=== PATIENT | female | born 1955 | race Caucasian/White ===

== ENCOUNTER 2018-07-09 06:54 | Day surgery (SDC) | payer MEDICARE, OTHER ==
[2018-07-08 12:24] VITALS: BMI 19.3
[2018-07-09 08:12] VITALS: BP 118/62; TEMP 98.6
--- NOTE | 2018-07-09 10:32 | RAD ---
CERVICAL AND LUMBAR MYELOGRAM: Indication: Cervical and lumbar pain and radiculopathy. Post-operative cervical and lumbar spine. FINDINGS: Web Engineer films show prior anterior fusion procedure in the cervical spine. Anterior plate and screws are present transfixing C4, C5, C6, and C7. Interbody implants and partial fusion at these levels. Poste rior alignment is preserved. Images of the lumbar spine reveal pedicle screws in place at L3 and L4. Interbody implant at L4-5 tawnya ear. Degenerative osteophytes and facet hypertrophy. Posterior alignment is preserved. Under local anesthesia, a 23 gauge spinal needle was used to enter the subarachnoid space within the spinal canal at the L2 level using a paramidline approach from the left under fluoroscopic guidance. Clear CSF was recovered. Isovue M300 was injected under fluoroscopic observation. Contrast opacified at the lumbar canal. Patient was placed head down on the fluoro table and contrast flowed into the ce rvical canal and this was documented under fluoro. Patient was returned to neutral position. Needle was removed. Sterile dressing applied. Patient was sent to CT following procedure. See post myelogram CT cervical spine and lumbar spine for further characterization. PROCEDURE NOTE: The procedure was discussed with patient. Patient was placed prone on the fluoro table. Lower back wa s prepped and draped in sterile manner. Local anesthesia was administered with Lidocaine under fluoro scopic guidance. 22 gauge spinal needle was used to enter the spinal canal using a paramidline approa ch on the left at L2. Clear CSF was recovered. Isovue M300 was injected under fluoroscopic observatio n as detailed above. There were no problems or complications. POS: [facility]
--- NOTE | 2018-07-09 11:40 | CT ---
POST MYELOGRAM CT CERVICAL SPINE: Date: 07/09/18 Multiple axial tomograms obtained through the cervical spine with multiplanar reconstruction followin g a cervical myelogram procedure. INDICATION; Cervical radiculopathy. Postoperative cervical spine. FINDINGS: Contrast throughout the subarachnoid space consistent with the post myelogram status. Postop changes from anterior fusion procedure noted. Anterior plate and screws transfix C4, C5, C6, and C7. Interbod y fusion at these levels. Degenerative changes are noted. Loss of disc space at C3-4 and at C7-T1. Mild anterolisthesis at C7-T 1 measured at approximately 3.0 mm. At C2-3, mild disc bulge and spondylosis mildly flatten the anterior thecal sac. Anterior subarachnoi d space is preserved. At C3-4, broad based disc bulge and spondylitic change flatten the thecal sac and abut the anterior c ord. These changes are slightly more pronounced centrally and paracentrally to the right, and there i s right facet and uncinate hypertrophy resulting in mild right foraminal stenosis. No significant spondylosis at C4-5 or C5-6. No foraminal stenosis at these levels. At C6-7, there is prominent uncinate hypertrophy on the right resulting in right foraminal stenosis. At C7-T1, there is mild anterolisthesis with minimal disc bulge. The anterior subarachnoid space is p reserved. No cord impingement. No central canal or foraminal stenosis. IMPRESSION: 1. Postop fusion changes from C4 through C7 as described. 2. Disc bulge and spondylosis at C3-4 abut the anterior cord and results in mild right foraminal jackelin nosis. 3. Uncinate hypertrophy results in right foraminal stenosis at C6-7. 4. Slight anterolisthesis at C7-T1 as described. POS: [facility]
--- NOTE | 2018-07-09 12:24 | CT ---
POST MYELOGRAM CT LUMBAR SPINE: INDICATIONS: History of prior lumbar surgery. Lumbar radiculopathy and low back pain. TECHNIQUE: Multiple axial tomograms obtained through the lumbar spine following myelogram procedure. Multiplana r reconstruction was performed. FINDINGS: There are bilateral pedicle screws at the L3 and L4 levels. Interbody implant and partial fusion at L4-L5. Vertebral body height and alignment is preserved. Mild degenerative disk changes at L3-L4 wi th mild vacuum phenomena and loss of disk space. At L1-L2, mild disk bulge flattens the thecal sac. No central canal or foraminal stenosis. At L2-L3, broad-based disk bulge flattens the anterior thecal sac. There is prominent posterior liga mentous hypertrophy. These changes compress the thecal sac, resulting in moderate central canal sten osis. At L3, there are bilateral pedicles screws, which appear adequately positioned. At the L3-L4 disk space, mild disk bulge abuts the thecal sac. Facet hypertrophy is present. No sig nificant central canal or foraminal stenosis. Posterior laminectomy change at L3-L4 and at L4-L5. Pedicle screws at L4 appear adequately positioned. At the L4-L5 disk space, interbody implant and partial fusion. Facet hypertrophy is prominent. No c entral canal stenosis. Mild foraminal encroachment bilaterally due to facet hypertrophy, without sig nificant foraminal stenosis. At L5-S1, mild diffuse disk bulge abuts the anterior thecal sac. This diffuse disk bulge contacts diana th traversing S1 nerve roots. Facet and ligamentous hypertrophy. Mild central canal stenosis. Mild bilateral foraminal narrowing secondary to facet hypertrophy. IMPRESSION: 1. Postoperative changes of the lumbar spine, as described. 2. Moderate central canal stenosis at L2-L3, as described. 3. Mild central canal stenosis at L5-S1, as described. POS: [facility]
== END 2018-07-09 10:15 | disposition home or self-care (01) ==
LOC: RAD 06:54
PROVIDERS: ATTEND Neurological Surgery
PROC: B01B1ZZ Fluoroscopy of Spinal Cord using Low Osmolar Contrast (ICD-10-PCS; principal; 2018-07-09)
DX: M50.11 Cervical disc disorder with radiculopathy, high cervical region (principal); M47.22 Other spondylosis with radiculopathy, cervical region; M48.02 Spinal stenosis, cervical region; M51.16 Intervertebral disc disorders with radiculopathy, lumbar region; M48.061 Spinal stenosis, lumbar region without neurogenic claudication; M51.27 Other intervertebral disc displacement, lumbosacral region; M48.07 Spinal stenosis, lumbosacral region; F17.210 Nicotine dependence, cigarettes, uncomplicated; Z79.891 Long term (current) use of opiate analgesic; Z79.899 Other long term (current) drug therapy; Z98.1 Arthrodesis status
CPT/HCPCS: 62305; 72126; 72132

== ENCOUNTER 2018-09-11 12:59 | Outpatient (CLI) | payer MEDICARE, OTHER ==
[2018-09-11 14:21] LABS: Hemoglobin 12.6 g/dL (12.0-16.0); Mean Corpuscular HGB CONC 33.7 g/dL (32.0-36.0); Mean Corpuscular Hemoglobin 31.4 pg (27.0-31.0); Mean Corpuscular Volume 93.3 fL (78.0-98.0); Mean Platelet Volume 6.9 fL (7.4-10.4); Platelet Count 429 thou/uL (130-400); RBC Distribution Width 11.9 % (11.5-14.5); Red Blood Cell (RBC) Count 4.02 mill/uL (4.20-5.40); White Blood Cell (WBC) Count 7.9 thou/uL (4.8-10.8)
[2018-09-11 14:39] LABS: Anion Gap 12 mmol/L (10-20); BUN (Urea Nitrogen) 5 mg/dL (9.8-20.1); Calc. Creatinine Clearance 0 mL/min (70-130); Calcium 9.3 mg/dL (7.8-10.44); Carbon Dioxide 23 mmol/L (23-31); Chloride 102 mmol/L (98-107); Estimated GFR-MDRD 88; Glucose 87 mg/dL (80-115); Potassium 3.9 mmol/L (3.5-5.1); Sodium 133 mmol/L (136-145)
== END 2018-09-11 13:00 | disposition home or self-care (01) ==
LOC: LABBT 12:59
PROVIDERS: ATTEND Neurological Surgery
DX: Z01.818 Encounter for other preprocedural examination (principal); M50.30 Other cervical disc degeneration, unspecified cervical region
CPT/HCPCS: 80048; 85027; 93005; 93010

== ENCOUNTER 2018-09-11 13:00 | Inpatient (IN) | payer MEDICARE, OTHER ==
[2018-09-11 13:34] VITALS: BMI 19.5
[2018-09-13] MEDS ORDERED: CEFAZOLIN 2 GM/50 ML BAG ONE (07:46)
[2018-09-13] MEDS ORDERED: Midazolam HCl 2 mg/2 ml Vial ONE ×2 (08:39→10:06)
[2018-09-13] MEDS ORDERED: Sodium Chloride 0.9% 10 ML ONE (09:42)
[2018-09-13] MEDS ORDERED: Fentanyl 100 MCG/2 ML VIAL ONE ×3 (10:06→11:30)
[2018-09-13] MEDS ORDERED: traMADol HCl 50 MG TAB PO PRN ×2 (11:38)
[2018-09-13] MEDS ORDERED: Morphine 4 MG/ML VIAL SLOW IVP PRN (11:38)
[2018-09-13] MEDS ORDERED: Promethazine HCl 12.5 MG SUPP PR PRN (11:38)
[2018-09-13] MEDS ORDERED: Ondansetron PF 4 MG/2 ML Vial IVP PRN (11:38)
[2018-09-13] MEDS ORDERED: diphenhydrAMINE 25 MG CAP PO PRN (11:38)
[2018-09-13] MEDS ORDERED: Mag-Al 1200 mg/1200 mg/30 ML UDCUP PO PRN (11:38)
[2018-09-13] MEDS ORDERED: diphenhydrAMINE 50 MG/ML VIAL IVP PRN (11:38)
[2018-09-13] MEDS ORDERED: Promethazine HCl 25 MG/ML VIAL IM PRN (11:38)
[2018-09-13] MEDS ORDERED: Promethazine 25 MG TAB PO PRN (11:38)
[2018-09-13] MEDS ORDERED: Morphine 4 MG/ML VIAL ONE ×2 (11:48→12:00)
--- NOTE | 2018-09-13 12:14 | OP ---
DATE OF PROCEDURE: 09/13/2018 OFFICE AGENT: Faraz. PROCEDURES PERFORMED: Removal of hardware C4-C7, expiration of spinal fusion, C4-C7, anterior cervical diskectomy C3-C4, interbody arthrodesis, intervertebral biomechanical device, local morselized autograft, demineralized bone matrix, and anterior-titanium instrumentation, C3-C4. DESCRIPTION OF PROCEDURE: The patient was brought to the operating room and intubated. She was positioned supine with head in modest extension on a gel-filled donut. An incision was made in the right precervical area and dissected medial to the sternocleidomastoid muscle, identifying the anterior cervical spinal, and the level was confirmed by x-ray. We removed the previous plate without difficulty. We explored this spinal fusion and seemed to be solid at all levels. We next placed distraction across C3-C4, removed the intervertebral disk, and decompressed the neural elements. The bony endplates were then decorticated for the purpose of arthrodesis and appropriate-sized intervertebral biomechanical PEEK device was brought into the field and filled with demineralized bone matrix, local morselized autograft, and tapped in place securely at C3-C4. Next, an anterior plate was brought into the field and secured to C3 and C4 using two 14-mm screws at each level. The wound was extensively irrigated and maximum hemostasis was secured and the wound was closed in anatomic layers over drain. Job ID: [id number]
[2018-09-13] MEDS ORDERED: Ketorolac Tromethamine 30 MG/ML VIAL ONE (12:15)
[2018-09-13] MEDS: HYDROcodone/Acetaminophen 10/325 mg Tablet PO PRN ×3 (13:36→21:42)
[2018-09-13] MEDS: Sodium Chloride 0.9% 1,000 ML IV SCH ×2 (14:58→23:53)
[2018-09-13] MEDS: CEFAZOLIN 2 GM/50 ML-DEXTROSE 2 GM in Premix Bag 1 BAG IVPB SCH ×2 (16:02→23:48)
[2018-09-13] MEDS: Fiorinal 325/50/40 mg Tablet PO SCH ×2 (16:03→20:37)
[2018-09-13] MEDS: tiZANidine HCl 4 MG TAB PO PRN (16:03)
[2018-09-13] MEDS: ALPRAZolam 1 MG TAB PO SCH (20:25)
[2018-09-14] MEDS: HYDROcodone/Acetaminophen 10/325 mg Tablet PO PRN ×3 (01:41→10:07)
[2018-09-14] MEDS: tiZANidine HCl 4 MG TAB PO PRN (06:05)
[2018-09-14 08:00] VITALS: BP 162/83; TEMP 97.9
[2018-09-14] MEDS: ALPRAZolam 1 MG TAB PO SCH (08:37)
[2018-09-14] MEDS: Fiorinal 325/50/40 mg Tablet PO SCH (08:38)
--- NOTE | 2018-09-15 04:05 | DIS ---
DATE OF ADMISSION: 09/13/2018 DATE OF DISCHARGE: 09/14/2018 HOSPITAL COURSE: The patient is a 63-year-old female with a prior C4- C7 fusion many years ago, who was recently seen in our office for progressive neck discomfort which showed significant cervical degenerative disk disease at the level above, her prior fusion C3-C4. The patient underwent removal of hardware and extension of fusion to C3-C4 on 09/13/2018. Following her surgery, she was transitioned to the [facility] where her pain was well controlled p.o. medications. She was tolerating regular diet and voiding appropriately. The patient did have BARI drain placed intraoperatively, but only had 40 mL out over the 1st night. This was removed on postoperative day #1. I am visiting the patient at the bedside, she is awake and alert. She has free active range of all extremities. No focal motor weakness or reflex asymmetry. We will plan to dismiss the patient home. I have discussed home care precautions. We will follow up with the patient in 2 weeks. She has been provided with scripts for Addy and metaxalone. Job ID: [id number] [facility]
== END 2018-09-14 10:30 | disposition home or self-care (01) | DRG 473 ==
LOC: SURG A 09-13 07:15
PROVIDERS: ADMIT Neurological Surgery; ATTEND Neurological Surgery
PROC: 0RG10A0 Fusion of Cervical Vertebral Joint with Interbody Fusion Device, Anterior Approach, Anterior Column, Open Approach (ICD-10-PCS; principal; 2018-09-13)
PROC: 0RB30ZZ Excision of Cervical Vertebral Disc, Open Approach (ICD-10-PCS; 2018-09-13)
PROC: 0PP304Z Removal of Internal Fixation Device from Cervical Vertebra, Open Approach (ICD-10-PCS; 2018-09-13)
DX: M50.31 Other cervical disc degeneration, high cervical region (principal); Z90.49 Acquired absence of other specified parts of digestive tract; Z90.710 Acquired absence of both cervix and uterus; Z98.890 Other specified postprocedural states
CPT/HCPCS: 76001; 80048; 85027; 93005; 93010; 96374; C1713; C1776; J0131; J1885; J2250; J2270; J3010; J3490

== ENCOUNTER 2018-09-27 10:01 | Outpatient (CLI) | payer MEDICARE, OTHER ==
--- NOTE | 2018-09-27 11:48 | RAD ---
CERVICAL SPINE THREE VIEWS: 09/27/2018 HISTORY: Trouble swallowing. Cervical disk disease. COMPARISON: Cervical spine myelogram from 07/09/2018. FINDINGS: There is anterior diskectomy fusion hardware at C3-C4, new. The extensive anterior fusion hardware s een on the prior examination, at the C4, C5, C6, and C7 levels has been removed. Mild diffuse prever tebral soft tissue swelling is seen at the postoperative site, nonspecific. Follow-up imaging is adv ised. There is degenerative endplate change and disk space narrowing at C6-C7. There is no evidence for hardware failure. Open-mouth odontoid view demonstrates a normal appearing dens and C1-C2 articulation. IMPRESSION: Postoperative and degenerative change of the cervical spine, as above. POS: [facility]
== END 2018-09-27 10:02 | disposition home or self-care (01) ==
LOC: TBSIIMAG 10:01
PROVIDERS: ATTEND Neurological Surgery
DX: M50.90 Cervical disc disorder, unspecified, unspecified cervical region (principal); M47.812 Spondylosis without myelopathy or radiculopathy, cervical region; Z98.890 Other specified postprocedural states
CPT/HCPCS: 72040

== ENCOUNTER 2018-11-07 13:15 | Outpatient (CLI) | payer MEDICARE, OTHER ==
--- NOTE | 2018-11-07 14:14 | RAD ---
CERVICAL SPINE AP AND LATERAL AND STANDARD: HISTORY: M50-30. M47.812. COMPARISON: Radiograph from 09/27/2018. FINDINGS: ACDF hardware at C3-4 is present. There is mild backing out of the ACDF hardware from C3 with lack o f normal apposition. Open mouth odontoid view is normal. Moderate basilar calcifications of the carotid bulbs. IMPRESSION: Lack of normal apposition of the anterior cervical diskectomy and fusion hardware at C3 with some mary ency around the screws concerning for loosening and early failure. POS: [facility]
== END 2018-11-07 13:16 | disposition home or self-care (01) ==
LOC: TBSIIMAG 13:15
PROVIDERS: ATTEND Neurological Surgery
DX: M50.30 Other cervical disc degeneration, unspecified cervical region (principal); M47.812 Spondylosis without myelopathy or radiculopathy, cervical region; Z98.890 Other specified postprocedural states
CPT/HCPCS: 72040

== ENCOUNTER 2019-01-28 13:14 | Outpatient (CLI) | payer MEDICARE, OTHER ==
--- NOTE | 2019-01-28 14:25 | RAD ---
CERVICAL SPINE THREE VIEWS: HISTORY: Thoracic radiculopathy. Follow up postoperative change. COMPARISON: 11/07/2018 FINDINGS: Extensive fusion changes with anterior cervical metal plate and screws at C3-C4, with intradiskal pro sthesis. No significant malalignment. IMPRESSION: 1. Anterior cervical fusion changes at C3-C4, as well as fusion of the lower cervical spine. 2. Disk osteophytosis and facet arthrosis, stable from prior study. POS: [facility]
== END 2019-01-28 13:15 | disposition home or self-care (01) ==
LOC: TBSIIMAG 13:14
PROVIDERS: ATTEND Neurological Surgery
DX: M47.22 Other spondylosis with radiculopathy, cervical region (principal); Z98.1 Arthrodesis status
CPT/HCPCS: 72040

== ENCOUNTER 2020-06-02 10:32 | Outpatient (CLI) | payer MEDICARE, OTHER ==
--- NOTE | 2020-06-11 10:39 | MMO ---
Bilateral MAMMO Bilat Screen [facility]. CLINICAL HISTORY: Patient is 65 years old and is seen for screening. The patient has the following family history of breast cancer: 3 cousin females, malignant (generic). The patient has no personal history of cancer. VIEWS: The views performed were: bilateral craniocaudal with tomosynthesis and bilateral mediolateral oblique with tomosynthesis. FILMS COMPARED: The present examination has been compared to a prior imaging study performed at This study has been interpreted with the assistance of computer-aided detection. MAMMOGRAM FINDINGS: There are scattered fibroglandular densities. Finding 1: There is a stable mass seen in the upper-outer region of the right breast. Finding 2: Benign calcifications are noted bilaterally. There are no suspicious masses, suspicious calcifications, or new areas of architectural distortion. IMPRESSION: THERE IS NO MAMMOGRAPHIC EVIDENCE OF MALIGNANCY. A ROUTINE FOLLOW-UP MAMMOGRAM IN 1 YEAR IS RECOMMENDED. THE RESULTS OF THIS EXAM WERE SENT TO THE PATIENT. ACR BI-RADS Category 2 - Benign finding MAMMOGRAPHY NOTE: 1. A negative mammogram report should not delay a biopsy if a dominant of clinically suspicious mass is present. 2. Approximately 10% to 15% of breast cancers are not detected by mammography. 3. Adenosis and dense breasts may obscure an underlying neoplasm. Reported by: JOANN MCCANN MD Electonically Signed: [id number]
== END 2020-06-02 10:33 | disposition home or self-care (01) ==
LOC: BICMAMMO 10:32
PROVIDERS: ATTEND Family Medicine
DX: Z12.31 Encounter for screening mammogram for malignant neoplasm of breast (principal); Z80.3 Family history of malignant neoplasm of breast
CPT/HCPCS: 77063; 77067

== ENCOUNTER 2021-06-03 10:04 | Outpatient (CLI) | payer MEDICARE, OTHER | END 2021-06-03 10:05 | disposition home or self-care (01) | LOC: BICMAMMO 10:04 | PROVIDERS: ATTEND Family Medicine | DX: Z12.31 Encounter for screening mammogram for malignant neoplasm of breast (principal); Z80.3 Family history of malignant neoplasm of breast | CPT/HCPCS: 77063; 77067 ==

== ENCOUNTER 2025-07-29 10:19 | Outpatient (CLI) | payer MEDICARE, OTHER | END 2025-07-29 10:20 | disposition home or self-care (01) | LOC: BICMAMMO 10:19 | DX: Z12.31 Encounter for screening mammogram for malignant neoplasm of breast (principal); Z80.3 Family history of malignant neoplasm of breast | CPT/HCPCS: 77063; 77067 ==